=== PATIENT | male | born 1980 | race Caucasian/White ===

== ENCOUNTER 2018-12-14 14:29 | Emergency (ER) | payer SELFPAY ==
[2018-12-14] MEDS ORDERED: ONDANSETRON HCL/PF 4 MG/ 2ML VIAL IVP ONE (14:48)
[2018-12-14] MEDS ORDERED: 0.9 % SODIUM CHLORIDE 1,000 ML IV ONE ×2 (14:48→16:16)
[2018-12-14] MEDS ORDERED: KETOROLAC TROMETHAMINE 30 MG/1ML VIAL IVP ONE (14:49)
[2018-12-14 15:21] LABS: BASOPHILS % 0.8 (0.0-1.5); EOSINOPHILS % 2.5 % (0.0-6.8); MEAN CORPUSCULAR HEMOGLOBIN 31.6 pg (28.0-34.0); MONOCYTES % 4.9 % (0.0-11.0); NEUTROPHILS # 7.4 # k/uL (1.4-7.7)
[2018-12-14 15:55] LABS: eGFR (Non-African) > 60
[2018-12-14] MEDS ORDERED: TAMSULOSIN HCL 0.4 MG CAP.ER.24H PO ONE (16:16)
--- NOTE | 2018-12-14 16:56 | ED Physician Documentation ---
Abdominal Pain - HISTORIAN Historian: patient - HPI Stated Complaint: Abdominal and back pain Chief Complaint: General Adult Onset: hours Timing: still present Context: denies: out of country travel Severity: moderate Quality: pain, aching Associated Symptoms: nausea Exacerbated by: nothing Relieved by: nothing Further Comments: yes (Pt is a 38 yo male with no significant PMHx who presents with severe R flank pain and nausea. Pain radiates to groin. 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.) - ROS CONST: no problems GI/: problems urinating CVS/RESP: none EYES/ENT: none MS/SKIN/LYMPH: none NEURO/PSYCH: none - SOCIAL HX Smoking History: cigarettes Alcohol Use: occasionally - FAMILY HX Family History: none - PAST HX Past History: none Home Medications: Ambulatory Orders Medication Instructions Recorded NK 12/14/18 Allergies/Adverse Reactions: Allergies Allergy/AdvReac Type Severity Reaction Status Date / Time No Known Allergies Allergy Verified 12/14/18 16:13 - VITAL SIGNS Vital Signs: Vital Signs Temp Pulse Resp BP Pulse Ox 97.7 F 74 36 H 165/99 97 12/14/18 14:35 12/14/18 14:35 12/14/18 14:35 12/14/18 14:35 12/14/18 14:35 - REVIEWED ASSESSMENTS Nursing Assessment Reviewed: Yes Vitals Reviewed: Yes Progress - Progress Progress: NS 1 L IVF x 2 Toradol 30 mg IV Zofran 4 mg IV Flomax 0.4 mg po Pt comfortable after Toradol. CT abd/pelvis w/o contrast: Findings: Within the distal right ureter a 3.5 mm calcification associated proximal ureteric dilation. Within the mid to distal left ureter 6.2 mm calcification with proximal ureteric dilation. Mild periureteric stranding. No suspicious renal region calcification. Bladder partially decompressed. Liver, spleen, adrenals, pancreas and gallbladder are without gross irregularity given exam technique. No gallstone. Abdominal aorta without aneurysm or peripheral atherosclerotic disease. Cardiac silhouette is not enlarged. No pericardial effusion. Bowel unopacified limiting evaluation. No abnormal dilation. Stool within the large bowel limiting sensitivity. No mesenteric inflammatory changes or free fluid. Appendix is visualized and is without inflammatory changes. Osseous structures demonstrates L5/S1 degenerative spurring. Lung bases demonstrate atelectasis without infiltrate. Left lung base granuloma. No effusion. Impression: Bilateral ureterolithiasis as described above resulting in bilateral obstructive uropathy. Urology consultation recommended No acute upper abdominal organ inflammatory process. No abnormal bowel dilation or inflammation. No gallstone. No lung base consolidation or effusion. Transfer to [facility], Dr. Aguero. ED Results Lab/Radiology - Lab Results Lab Results: Lab Results 12/14/18 12/14/18 12/14/18 Unknown Unknown Unknown WBC 12.50 K/ul H K/ul (4.00-12.00) RBC 4.75 M/ul M/ul (3.90-5.20) Hgb 15.0 g/dL g/dL (12.0-18.0) Hct 45.2 % % (37.0-53.0) MCV 95.0 fl fl (80.0-100.0) MCH 31.6 pg pg (28.0-34.0) MCHC 33.1 g/dL g/dL (30.0-36.0) RDW 12.2 % % (11.3-14.3) Plt Count 298 K/mm3 K/mm3 (130-400) Neut % (Auto) 59.3 % % (39.0-79.0) Lymph % (Auto) 32.5 % % (16.0-50.0) [place] % (Auto) 4.9 % % (0.0-11.0) Eos % (Auto) 2.5 % % (0.0-6.8) Baso % (Auto) 0.8 (0.0-1.5) Neut # (Auto) 7.4 # k/uL # k/uL (1.4-7.7) Lymph # (Auto) 4.1 # k/uL H # k/uL (0.6-4.0) [place] # (Auto) 0.6 # k/uL # k/uL (0.0-0.9) Eos # (Auto) 0.3 # k/uL # k/uL (0.0-0.6) Baso # (Auto) 0.1 # k/uL # k/uL (0.0-0.5) Sodium 138 mmol/L mmol/L (136-145) Potassium 3.2 mmol/L L mmol/L (3.5-5.1) Chloride 105 mmol/L mmol/L (98-107) Carbon Dioxide 21 mmol/L L mmol/L (22-30) BUN 15 mg/dL mg/dL (9-20) Creatinine 1.36 mg/dL H mg/dL (0.66-1.25) Estimated Creat Clear 108 Est GFR ( Amer) > 60 (60 - ) Est GFR (Non-Af Amer) > 60 (60 - ) Glucose 125 mg/dL H mg/dL (74-106) Calcium 9.7 mg/dL mg/dL (8.4-10.2) Total Bilirubin 0.5 mg/dL mg/dL (0.2-1.3) AST 32 U/L U/L (15-46) ALT 30 U/L U/L (13-69) Alkaline Phosphatase 83 U/L U/L (38-126) Total Protein 7.5 g/dL g/dL (6.3-8.2) Albumin 4.8 g/dL g/dL (3.5-5.0) Lipase 128 U/L U/L (23-300) - Orders Orders: ED Orders Category Date Time Status CT ABD & PELVIS W/O CON Stat Exams 12/14/18 Completed CBC/PLATELET/DIFF Routine Lab 12/14/18 Completed CMP Routine Lab 12/14/18 Completed LIPASE Stat Lab 12/14/18 Completed UA [URINALYSIS] Routine Lab 12/14/18 Ordered 0.9 % Sodium Chloride [Normal Saline] 1,000 ml Med 12/14/18 14:48 Discontinued IV Q1H 0.9 % Sodium Chloride [Normal Saline] 1,000 ml Med 12/14/18 16:16 Active IV Q1H Ketorolac Tromethamine [Toradol] Med 12/14/18 14:49 Discontinued 30 mg IVP NOW ONE Ondansetron HCl/Pf [Zofran 4 mg/2 ml] Med 12/14/18 14:48 Discontinued 4 mg IVP NOW ONE Tamsulosin HCl [Flomax] Med 12/14/18 16:16 Discontinued 0.4 mg PO NOW ONE Abdominal Pain Physical Exam - Physical Exam General Appearance: moderate distress EENT: pharynx normal NECK: normal inspection, supple RESPIRATORY: no resp distress, chest non-tender, breath sounds normal CVS: reg rate & rhythm, heart sounds normal ABDOMEN: soft, no organomegaly, normal bowel sounds BACK: normal inspection, CVA tenderness (R) SKIN: warm/dry, normal color EXTREMITIES: non-tender, normal range of motion, no evidence of injury, no edema NEURO: oriented X3, motor nml, sensation nml Vital Signs: Vital Signs Temp Pulse Resp BP Pulse Ox 97.7 F 74 36 H 165/99 97 12/14/18 14:35 12/14/18 14:35 12/14/18 14:35 12/14/18 14:35 12/14/18 14:35 Discharge Clincal Impression: b/l obstructing kidney stones Referrals: Primary Doctor,No [Primary Care Provider] - 2 Days Condition: Stable Disposition: 02 XFER [id number] HOSP Decision to Admit: NO Decision Time: 17:11
--- NOTE | 2018-12-14 17:02 | Diagnostic Imaging Report ---
BRADLEYSONIA SHANIKA Ofelia GILL [facility] [id number] [facility] [address] [place], [place]. [address] Report Submission Date: Dec 14, 2018 4:41:16 PM WORT EXTRACTOR Patient Study Name: SHANIKA AREVALO Date: Dec 14, 2018 3:39:10 PM WORT EXTRACTOR Modality Type: CT\SR Gender: M Description: CT ABD PELVIS W/O CO : 80 Institution: [facility] Physician: SHANIKA ARMSTRONG Examination: CT Abdomen/pelvis History: Rt flank pain x's 1 day Stone Protocol Comparison exams: None available Technique: CT Abdomen/pelvis without IV protocol. Findings: Within the distal right ureter a 3.5 mm calcification associated proximal ureteric dilation. Within the mid to distal left ureter 6.2 mm calcification with proximal ureteric dilation. Mild periureteric stranding. No suspicious renal region calcification. Bladder partially decompressed. Liver, spleen, adrenals, pancreas and gallbladder are without gross irregularity given exam technique. No gallstone. Abdominal aorta without aneurysm or peripheral atherosclerotic disease. Cardiac silhouette is not enlarged. No pericardial effusion. Bowel unopacified limiting evaluation. No abnormal dilation. Stool within the large bowel limiting sensitivity. No mesenteric inflammatory changes or free fluid. Appendix is visualized and is without inflammatory changes. Osseous structures demonstrates L5/S1 degenerative spurring. Lung bases demonstrate atelectasis without infiltrate. Left lung base granuloma. No effusion. Impression: Bilateral ureterolithiasis as described above resulting in bilateral obstructive uropathy. Urology consultation recommended No acute upper abdominal organ inflammatory process. No abnormal bowel dilation or inflammation. No gallstone. No lung base consolidation or effusion. Electronically signed on Dec 14, 2018 4:41:16 PM WORT EXTRACTOR by: Todd MCKEON
[2018-12-14 17:58] LABS: APPEARANCE,URINE CLEAR (CLEAR); COLOR,URINE AMBER (YELLOW); OCCULT BLOOD,URINE 3+ (NEGATIVE); UROBILINOGEN URINE 0.2 Eu (0.2-1.0)
[2018-12-14 18:42] VITALS: BP 132/73
== END 2018-12-14 17:50 | disposition short-term general hospital (02) ==
LOC: ED 14:29
DX: N20.1 Calculus of ureter (principal); N13.9 Obstructive and reflux uropathy, unspecified
CPT/HCPCS: 36415; 74176; 80053; 81002; 83690; 85025; 96374; 96375; 99285; J1885; J2405; J7030; S1016